=== PATIENT | female | born 1990 | race African-American/Black ===

== ENCOUNTER → 2016-11-22 02:08 | Emergency (ER) | payer OTHER ==
[~2016-11-22 02:08] MED LIST: AURALGAN EAR DR14 ML OT; AZITHROMYCIN250 MG PO; BENADRYL A12.5 MG/1 PO; BENZONATATE PO; FLONASE16 GM; LORTAB 5/500 TA1 TA2 PO; MACROBID100 MG DOB; MACROBID100 MG PO; ROBITUSSIN A-C S5 ML PO; VICODIN 5/1 TAB 5/50 PO
== END | disposition left against medical advice (07) ==
LOC: CED 02:08
DX: Z53.21 Procedure and treatment not carried out due to patient leaving prior to being seen by health care provider (principal)

== ENCOUNTER 2016-12-14 07:58 | Emergency (ER) | payer OTHER | END 2016-12-14 08:27 | disposition home or self-care (01) | LOC: CED 07:58 | DX: B35.4 Tinea corporis (principal); F17.200 Nicotine dependence, unspecified, uncomplicated | CPT/HCPCS: 96372; 99283; J1885 ==

== ENCOUNTER 2017-01-29 00:34 | Emergency (ER) | payer OTHER ==
--- NOTE | ~2017-01-29 | CT16 ---
[facility] A Service of [facility] RADIOLOGY TEXT RESULTS PATIENT: CATRACHO LOVING LOCATION: [facility] : [birth year] UNIT #: [id number] AGE: [address]: Zulma Tracey MD SEX: F ORDER DR: [id number] [facility] [address] [place], [place] [address] [id number] E MR#: [id number] Acc #: [id number] NAME: CATRACHO LOVING. : 1990 SEX: F STUDY DATE/TIME: 01/29/2017 1:45 UNIT: [facility] ROOM: STUDY DESCRIPTION: CT Angio Chest for PE Attending Physician: Zulma Tracey M.D. Ordering Physician: Zulma Tracey M.D. Primary Care Physician: Primary Care Physician No MEDICAL IMAGING REPORT This report is preliminary unless electronic signature is present EXAM CTA chest PE protocol INDICATION Chest pain, shortness of air today. PROCEDURE Contrast-enhanced CTA of the chest attention on opacification of pulmonary arteries. Coronal 3-D MIP sagittal reformatted images reconstructed submitted. This CT exam was performed with one or more of the following radiation dose reduction techniques: automatic exposure control, adjustment of mA and/or kV according to patient size, and iterative reconstruction. COMPARISON Chest CT from 01/19/2017 FINDINGS No evidence for pulmonary embolus. Cardiomegaly. Small pericardial effusion. Scattered areas of loculated hydropneumothorax throughout the left chest. There is atelectasis in the left lung base. Linear atelectasis in the right lower lobe. No acute findings in the included upper abdomen. No aggressive appearing bone lesion. IMPRESSION 1. No evidence for pulmonary embolus. 2. Scattered areas of loculated hydropneumothorax in the left chest. Dictated by... Lex White M.D. THIS IS AN ELECTRONICALLY VERIFIED REPORT [facility] A Service of [facility] RADIOLOGY TEXT RESULTS PATIENT: CATRACHO LOVING LOCATION: [facility] : [birth year] UNIT #: [id number] AGE: [address]: Zulma Tracey MD SEX: F ORDER DR: Lex White M.D. at 01/29/2017 9:58 PM SAIRA/bassam TD: 01/29/2017 08:46 JOB #: [id number] MEDICAL IMAGING REPORT Page 1 of 1 COPY
--- NOTE | ~2017-01-29 | CR72 ---
[facility] A Service of [facility] RADIOLOGY TEXT RESULTS PATIENT: CATRACHO LOVING LOCATION: [facility] : [birth year] UNIT #: [id number] AGE: [address]: Zulma Tracey MD SEX: F ORDER DR: [id number] [facility] [address] [place], [place] [address] [id number] E MR#: [id number] Acc #: [id number] NAME: CATRACHO LOVING : 1990 SEX: F STUDY DATE/TIME: 01/29/2017 1:04 UNIT: [facility] ROOM: STUDY DESCRIPTION: CR Chest Single View Portable Attending Physician: Zulma Tracey M.D. Ordering Physician: Zulma Tracey M.D. Primary Care Physician: Primary Care Physician No MEDICAL IMAGING REPORT This report is preliminary unless electronic signature is present EXAM Portable chest INDICATIONS Shortness of air for the past 2 days. PROCEDURE Frontal view chest. COMPARISON: 01/28/2017 FINDINGS Stable heart size and opacity in the left mln-aj-kqhra lung zone. No new dense consolidation. No visible pneumothorax. IMPRESSION Stable Dictated by... Lex White M.D. THIS IS AN ELECTRONICALLY VERIFIED REPORT Lex White M.D. at 01/29/2017 9:58 PM EED/paige TD: 01/29/2017 08:43 JOB #: [id number] MEDICAL IMAGING REPORT Page 1 of 1 COPY
[2017-01-29 01:53] LABS: BASOPHIL% 0.3 % (0-2.5); DIFF IND NO; EOSINOPHIL# 0.1 X10e3 (0-0.7); EOSINOPHIL% 1.7 % (0.0-7.0); HEMATOCRIT 34.1 % (35.0-45.0); HEMOGLOBIN 11.3 gm/dL (12.0-16.0); LYMPHOCYTE# 1.4 X10e3 (1.0-3.5); LYMPHOCYTE% 23.7 % (17.0-45.0); MEAN CELL VOLUME 100.4 FL (83-96); MEAN CORPUSCULAR HEMOGLOBIN 33.2 PG (28-34); MEAN CORPUSCULAR HGB CONC 33.1 g/dL (30-36); MEAN PLATELET VOLUME 7.9 FL (6.5-11.5); MONOCYTE# 0.9 X10e3 (0-1.0); NEUTROPHIL# 3.7 X10e3 (1.5-7.1); NEUTROPHIL% 60.3 % (40-75); PLATELET COUNT 287 X10e3 (140-420); RED BLOOD COUNT 3.39 X10e (3.90-5.30); RED CELL DISTRIBUTION WIDTH 12.8 % (11.0-15.5); WHITE BLOOD COUNT 6.1 X10e3 (4.0-10.5)
[2017-01-29 02:05] LABS: POC - CREATININE 0.87 mg/dL (0.44-1.03); POC - GFR >60.0 mL/min (>60)
[2017-01-29 02:12] LABS: ALBUMIN SERUM 3.4 g/dL (3.5-5.0); BILIRUBIN, DIRECT 0.2 mg/dL (0.0-0.2); BILIRUBIN,INDIRECT 0.7 mg/dL (0.0-0.9); BILIRUBIN,TOTAL 0.9 mg/dL (0.2-2.0); BUN/CREATININE RATIO 28.33; CALCIUM SERUM 8.7 mg/dL (8.4-10.2); CREATININE SERUM 0.6 mg/dL (0.6-1.4); GLOM FILT RATE Estimated 146.8 mL/min (>60); POTASSIUM 3.4 mmol/L (3.5-5.1); PROTEIN TOTAL SERUM 7.4 g/dL (6.0-8.3)
== END 2017-01-29 02:40 | disposition home or self-care (01) ==
LOC: CED 00:34
PROVIDERS: Emergency Medicine
DX: G89.18 Other acute postprocedural pain (principal); R07.89 Other chest pain; Z98.890 Other specified postprocedural states
CPT/HCPCS: 71010; 71275; 80048; 80076; 82565; 84703; 85025; 96361; 96374; 99284; J2270; Q9967

== ENCOUNTER 2017-02-14 01:08 | Emergency (ER) | payer OTHER | END 2017-02-14 02:31 | disposition left against medical advice (07) | LOC: CED 01:08 | DX: Z53.21 Procedure and treatment not carried out due to patient leaving prior to being seen by health care provider (principal) ==

== ENCOUNTER → 2017-02-14 | Outpatient (CLI) | payer OTHER ==
--- NOTE | ~2017-02-14 | CR63 ---
[facility] A Service [facility] RADIOLOGY TEXT RESULTS PATIENT: CATRACHO LOVING LOCATION: [facility] : [birth year] UNIT #: [id number] AGE: [address]: Marcell Arias MD SEX: F ORDER DR: [id number] [facility] [address] [place], [place] [address] [id number] O MR#: [id number] Acc #: [id number] NAME: CATRACHO LOVING : 1990 SEX: F STUDY DATE/TIME: 02/14/2017 14:38 UNIT: [facility] ROOM: STUDY DESCRIPTION: CR Chest 2 View Attending Physician: Marcell Arias M.D. Referring Physician: Marcell Arias M.D. Ordering Physician: Marcell Arias M.D. Primary Care Physician: No Primary Care Physician MEDICAL IMAGING REPORT This report is preliminary unless electronic signature is present EXAM Two-view chest. INDICATION Pneumothorax 1 month ago. Follow up. PROCEDURE Frontal view chest. COMPARISON 01/29/17 FINDINGS Heart size is stable. Persistent but improving opacity in the left mid and lower lung zone. No new dense consolidation. No pneumothorax. IMPRESSION Persistent but improving opacity in the sxg-gq-cskjf left lung zone, with possible some trace effusion. No new dense opacity or evidence for pneumothorax. Dictated by... Lex White M.D. THIS IS AN ELECTRONICALLY VERIFIED REPORT Lex White M.D. at 02/15/2017 9:28 AM SAIRA/suleiman TD: 02/14/2017 17:16 JOB #: [id number] MEDICAL IMAGING REPORT [facility] A Service [facility] RADIOLOGY TEXT RESULTS PATIENT: CATRACHO LOVING LOCATION: [facility] : [birth year] UNIT #: [id number] AGE: [address]: Marcell Arias MD SEX: F ORDER DR: Page 1 of 1 COPY
== END | disposition home or self-care (01) ==
LOC: CRAD 14:20
DX: J93.83 Other pneumothorax (principal)
CPT/HCPCS: 71020